=== PATIENT | female | born 1940 | race Caucasian/White ===

== ENCOUNTER 2017-08-13 22:09 | Inpatient (IN) | payer MEDICARE ==
[~2017-08-13] VITALS: Ht 157.5 cm; Wt 62.4 kg
[2017-08-13 22:10] VITALS: RESP 15; O2SAT 96
[2017-08-13] MEDS ORDERED: ASPI81CH6 CHEW (22:16)
[2017-08-13] MEDS ORDERED: LISI-515 PO (22:16)
[2017-08-13 22:17] VITALS: BP 146/84; PULSE 83; RESP 18; TEMP 98.1; O2SAT 95
[2017-08-13] MEDS ORDERED: METF1000 PO (22:17)
[2017-08-13] MEDS ORDERED: LISI20TA PO (22:17)
[2017-08-13] MEDS ORDERED: AMLO2.5T PO (22:17)
--- NOTE | 2017-08-13 22:44 | PD ---
HPI Chief Complaint: Fall Time Seen by Provider: 22:21 Travel History International Travel<30 days: No Contact w/Intl Traveler<30days: No Traveled to known affect area: No History of Present Illness HPI 77-year-old female that presents to the ED for evaluation of fall. Patient was transferred here from [facility] for evaluation of a traumatic injury. Patient had a mechanical fall when she tripped over a sidewalk. Patient landed into her face. Patient was evaluated at [facility] and had imaging and lab work that was consistent with a right patellar fracture, left temporal subdural hematoma as well as subarachnoid hemorrhage as well as a blowout left orbital fracture with no entrapment. Patient also suffered a laceration to her left forehead. This was sutured at the [facility]. Patient was transferred here after Dr. Petty from our trauma service agreed to have the transferred here. Patient complains that her pain currently is tolerable a 4 out of 10. She was given pain medication and tetanus booster at another facility. She denies any prior injuries. She denies taking any blood thinners. She denies losing consciousness. She denies any chest pain. No abdominal pain. No head pain. Patient has a splint to her right knee. She denies any back or neck pain at this time. She denies any other medical issues at this time. She does have a history of high blood pressure and diabetes. PENDING SALE TO [facility] Past Medical History Cardiovascular Problems: Yes (htn) Diabetes: Yes (metformin) Social History Alcohol Use: No Tobacco Use: No Substance Use: No Allergies-Medications (Allergen,Severity, Reaction): Coded Allergies: No Known Allergies (Verified Allergy, Unknown, 08/13/17) Reported Meds & Prescriptions Reported Meds & Active Scripts Active Reported Amlodipine (Amlodipine Besylate) 2.5 Mg Tab 2.5 Mg PO DAILY Metformin (Metformin HCl) 1,000 Mg Tab 1,000 Mg PO BIDPC Lisinopril-Hctz 20-12.5 Mg Tab 1 Tab PO DAILY Aspirin Low Dose (Aspirin) 81 Mg Chew 81 Mg CHEW DAILY Review of Systems Except as stated in HPI: all other systems reviewed are Neg Physical Exam Narrative GENERAL: SKIN: Warm and dry. HEAD: Atraumatic. Normocephalic. Bruising and swelling to the left orbit and forehead. Has a small 3 cm laceration just above the left eyebrow. EYES: Pupils equal and round 4 mms reactive to light and accommodation. No scleral icterus. No injection or drainage. EOM intact bilaterally. No entrapment noted. ENT: No nasal bleeding or discharge. Mucous membranes pink and moist. Tongue is midline. No uvula deviation. NECK: Trachea midline. No JVD. CARDIOVASCULAR: Regular rate and rhythm. No murmurs, S3, S4. RESPIRATORY: No accessory muscle use. Clear to auscultation. Breath sounds equal bilaterally. GASTROINTESTINAL: Abdomen soft, non-tender, nondistended. Hepatic and splenic margins not palpable. MUSCULOSKELETAL: Extremities without clubbing, cyanosis, or edema. No obvious deformities. Patient has a splint not on the right knee. Patient does have a significant hematoma to the left orbit with tenderness to palpation around the zygomatic bone as well as the orbital bones. No obvious cervical, thoracic, lumbar spine tenderness to palpation. 2+ pulses bilaterally. Patient has full range of motion of the upper extremities with no pain. 2+ pulses bilaterally. No deformities noted. Patient has full range of motion of the left lower extremity with no pain or deformity. NEUROLOGICAL: Awake and alert. No obvious cranial nerve deficits. Motor grossly within normal limits. Five out of 5 muscle strength in the arms and legs. Normal speech. PSYCHIATRIC: Appropriate mood and affect; insight and judgment normal. Data Data Last Documented VS Vital Signs Date Time Temp Pulse Resp B/P (MAP) Pulse Ox O2 Delivery O2 Flow Rate FiO2 08/13/17 22:17 98.1 83 18 146/84 (104) 95 Orders Orders Admit Order (Ed Use Only) (08/13/17 22:25) Electrocardiogram (08/13/17 22:28) Iv Access Insert/Monitor (08/13/17 22:28) Ecg Monitoring (08/13/17 22:28) Oximetry (08/13/17 22:28) Type And Screen (08/13/17 22:28) [facility] Medical Decision Making Medical Screen Exam Complete: Yes Emergency Medical Condition: Yes Medical Record Reviewed: Yes Interpretation(s) Labs and CTs done at [facility]. CT of the head showed small subdural hemorrhage or acute in time frame over the left frontal and temporal lobes. No mass effect. Minimal subarachnoid hemorrhage. No midline shift. Small vessel disease is chronic. Hemorrhage in the left maxillary antrum. No skull fracture. CT of the cervical spine without contrast showed negative for acute fracture. Degenerative changes. CT of the maxillofacial without contrast shows subtotal acute nondisplaced blowout fracture at the left orbital floor with herniation of the retrobulbar contents through the fracture defect. Trace blood fluid layers within the left maxillary sinus antrum. No associated left orbital acute traumatic injury. Left periorbital facial scalp subcutaneous blunt and penetrating injuries as above. X-ray of the right knee showed there is an acute closed distracted comminuted middle diaphyseal third fracture of the patella with distraction of 6 mm. Large lipoma hemarthrosis and markedly prepatellar soft tissue thickening and swelling. CBC show a viable 6 out of 14.5, RBC of 4.33, hemoglobin of 12.9, hematocrit of 38.8, platelets of 204, MCV of 89.6, neutrophils 83.2%, lymphs at 10.5% PT of 12.7, INR of 1.0, PTT of 26.4 Sodium 141, potassium of 4.1, chloride of 101, CO2 of 27, anion gap of 13, glucose of 186, BUN of 33, creatinine of 1.09, calcium of 8.8, creatinine clearance of 36.2, GFR of 49.8, albumin of 4.3, total protein of 5.7, alkaline phosphatase of 44, AST of 49, ALT of 62, bili total of 0.3. Differential Diagnosis Trauma versus subdural hematoma versus patellar fracture versus SIH versus fall Narrative Course 77-year-old female that presents to the ED for evaluation of trauma. Patient was properly examined and was found to have signs and symptoms consistent with trauma. Patient does have significant injuries. Case was discussed with my attending who agrees with plan. Case was discussed with trauma surgeon Dr. Lamar who will admit the patient. I specifically ask him if he wants me to consult neurosurgery, orthopedics, maxillofacial and he declined stating that he will put consult orders himself. This was discussed with the patient who agrees with plan. Patient was admitted to the trauma service. Diagnosis Primary Impression: Subdural hematoma, acute Additional Impressions: SAH (subarachnoid hemorrhage) Blow out fracture of orbit Qualified Codes: S02.30XA - Fracture of orbital floor, unspecified side, initial encounter for closed fracture Patellar fracture Qualified Codes: S82.041A - Displaced comminuted fracture of right patella, initial encounter for closed fracture Admitting Information Admitting Physician Requests: Admit Jose Alfredo Dobson Aug 13, 2017 22:44
[2017-08-13 23:00] VITALS: BP 136/70; PULSE 72; RESP 14; O2SAT 93
[2017-08-13] MEDS ORDERED: ONDANSETRON HCL 4 MG/2 ML VIAL IV PUSH PRN (23:30)
[2017-08-13] MEDS ORDERED: Post-op Orders (for Pharmacy) XX ONE (23:30)
[2017-08-13] MEDS ORDERED: NALOXONE HCL 0.4 MG/ML AMP IV PUSH PRN (23:30)
[2017-08-13] MEDS ORDERED: SODIUM CHLORIDE 0.9% FLUSH 10 ML FLUSH IV FLUSH PRN (23:30)
[2017-08-13] MEDS ORDERED: MORPHINE SULFATE 2 MG/ML INJ IV PRN (23:45)
[2017-08-14] VITALS (8 sets, daily range): BP systolic 113–133; BP diastolic 56–71; PULSE 60–78; RESP 12–24; TEMP 98.5–99.1; O2SAT 95–96
[2017-08-14] MEDS ORDERED: SODIUM CHLOR 0.9% 1000 ML INJ 1,000 ML IV SCH
[2017-08-14] MEDS ORDERED: PILL SPLITTER OTHER PRN (00:15)
--- NOTE | 2017-08-14 04:29 | RADRPT ---
EXAM DATE/TIME: 08/14/2017 03:48 [facility] COMPARISON: No previous studies available for comparison. INDICATIONS : Short of breath. MEDICAL HISTORY : Hypertension. Diabetes mellitus type II. SURGICAL HISTORY : None. ENCOUNTER: Initial ACUITY: 1 day PAIN SCORE: 0/10 LOCATION: Bilateral chest FINDINGS: A single view of the chest demonstrates the lungs to be symmetrically aerated without evidence of mas s, infiltrate or effusion. The cardiomediastinal contours are unremarkable. Osseous structures are intact. CONCLUSION: The lungs are clear. Salinas Johnson MD on August 14, 2017 at 4:28 Board Certified Radiologist. This report was verified electronically.
[2017-08-14 05:18] LABS: AUTOMATED NEUTROPHIL # 9.7 TH/MM3 (1.8-7.7); BASOPHIL % 0.3 % (0.0-2.0); EOSINOPHIL % 0.2 % (0.0-4.0); HEMO FLAGS DIFF FINAL; LYMPH % 10.1 % (9.0-44.0); LYMPHOCYTE # 1.2 TH/MM3 (1.0-4.8); MEAN CELL VOLUME 89.4 FL (80.0-100.0); MEAN CORPUSCULAR HEMOGLOBIN 29.7 PG (27.0-34.0); MEAN CORPUSCULAR HGB CONC 33.2 % (32.0-36.0); MONO % 5.8 % (0.0-8.0); NEUT % 83.6 % (16.0-70.0); PLATELET COUNT 161 TH/MM3 (150-450); RED BLOOD COUNT 4.14 MIL/MM3 (4.00-5.30); RED CELL DISTRIBUTION WIDTH 14.1 % (11.6-17.2); WHITE BLOOD COUNT 11.6 TH/MM3 (4.0-11.0)
[2017-08-14 05:39] LABS: BICARBONATE 27.1 MEQ/L (21.0-32.0); POTASSIUM 3.9 MEQ/L (3.5-5.1)
--- NOTE | 2017-08-14 07:11 | PD.ORT.PN ---
Subjective Subjective Remarks s/p fall over sidewalk reports right knee pain and face pain taken to [facility] and [place] [facility] [place] Objective Vitals Vital Signs Date Time Temp Pulse Resp B/P (MAP) Pulse Ox O2 Delivery O2 Flow Rate FiO2 08/14/17 07:04 78 16 123/65 (84) 96 Room Air 08/14/17 05:00 70 14 129/71 (90) 96 Room Air 08/14/17 03:00 62 14 113/65 (81) 95 Room Air 08/14/17 01:00 74 14 126/70 (88) 95 Room Air 08/13/17 23:00 72 14 136/70 (92) 93 Room Air 08/13/17 22:17 98.1 83 18 146/84 (104) 95 08/13/17 22:10 15 96 Room Air Result Diagram: 08/14/17 0427 08/14/17 0427 Objective Remarks RLE: abrasion over anterior knee at patella. swelling of knee noted. +CKS. NVI Assessment & Plan Assessment and Plan 1) Right Patella Fx -fx is relatively well aligned. borderline for needing surgical intervention -will order new xrays today to re-eval -if maintains position compared to xrays at [facility], may not need surgery -if displaces, will need ORIF -maintain knee brace -new xrays reviewed from today. fracture has maintained and is well aligned. -will plan for nonop treatment -50%WB with knee brace on. no quad sets, leg lifts, ROM, strengthening. -will need to re-xray in 10 days to check alignment Thuan Arrington/[employer] PA Aug 14, 2017 07:11
[2017-08-14] MEDS ORDERED: DEXTROSE 50% IN WATER 50 ML VIAL(D50) IV PUSH PRN (07:30)
[2017-08-14] MEDS ORDERED: LACTULOSE SYRUP 20 GM/30 ML CUP PO PRN (07:30)
[2017-08-14] MEDS ORDERED: GLUCAGON 1 MG/ML VIAL OTHER PRN (07:30)
[2017-08-14] MEDS: oxyCODONE/ACETAMINOPHEN 5 MG/325 MG TAB PO PRN ×3 (07:32→22:51)
[2017-08-14] MEDS: INSULIN NovoLIN REGULAR SUPPLEMENTAL SCALE SQ SCH ×4 (08:00→20:47)
--- NOTE | 2017-08-14 08:27 | RADRPT ---
EXAM DATE/TIME: 08/14/2017 08:07 [facility] COMPARISON: No previous studies available for comparison. INDICATIONS : Right knee pain after falling yesterday. MEDICAL HISTORY : Hypertension. Diabetes mellitus type II. SURGICAL HISTORY : None. ENCOUNTER: Initial ACUITY: 2 days PAIN SCORE: 6/10 LOCATION: Right patella. FINDINGS: Two view examination of the right knee demonstrates a comminuted fracture through the patella with ex tension to the articulating a non-articulating surface. Approximately 4 mm of distraction of the main fracture fragments. Prepatellar swelling and a large suprapatellar effusion are present. Distal femu r, proximal tibia and proximal fibula all appear to be intact. CONCLUSION: 1. Comminuted fracture of the patella with extension to the articulating and non-articulating surface s. Approximately 4 mm of distraction of the main fracture fragments. 2. Prepatellar soft tissue swelling with a large suprapatellar effusion. Atul Brown MD on August 14, 2017 at 8:22 Board Certified Radiologist. This report was verified electronically.
[2017-08-14] MEDS ORDERED: DOCUSATE SODIUM 100 MG CAP PO SCH (09:00)
[2017-08-14] MEDS: SODIUM CHLORIDE 0.9% FLUSH 10 ML FLUSH IV FLUSH SCH ×2 (09:00→20:47)
[2017-08-14] MEDS: POLYETHYLENE GLYCOL 17 GM PKG PO SCH (09:00)
--- NOTE | 2017-08-14 09:49 | PD.CONS ---
[facility] Service neurosurgery Consult Requested By rosette thompson Reason for Consult traumatic brain injury Primary Care Physician Non-Staff History of Present Illness this is a 77-year-old female with history of high blood pressure and diabetes. mellitus, brought to [facility] for evaluation of fall. She was transferred here from [facility] for evaluation of a traumatic injury. She does have a history of high blood pressure and diabetes. Apparently she tripped over a sidewalk. Patient landed into her face. lNo oss of consciousness. No seizure activity reported. No tongue biting. No incontinence of stool or urine Patient was evaluated at [facility] and had imaging and lab work that was consistent with a right patellar fracture, left temporal subdural hematoma as well as subarachnoid hemorrhage as well as a blowout left orbital fracture with no entrapment. Patient also suffered a laceration to her left forehead. This was sutured at the [facility]. The neurosurgeon at [facility] refused to see her. She was transferred here after Dr. Petty from our trauma service agreed to have the transferred here. Patient complains that her pain currently is tolerable a 4 out of 10. She was given pain medication and tetanus booster at another facility. She denies any prior injuries. She denies taking any blood thinners. She denies losing consciousness. She denies any chest pain. No abdominal pain. No head pain. Patient has a splint to her right knee. She denies any back or neck pain at this time. She denies any other medical issues at this time. Neurosurgical consultation was requested Review of Systems Constitutional: DENIES: Diaphoretic episodes, Fatigue, Fever, Weight gain, Weight loss, Chills, Dizziness, Change in appetite, Night Sweats Endocrine: DENIES: Abnorml menstrual pattern, Heat/cold intolerance, Polydipsia , Polyuria, Polyphagia Eyes: DENIES: Blurred vision, Diplopia, Eye inflammation, Eye pain, Vision loss , Photosensitivity, Double Vision Ears, nose, mouth, throat: DENIES: Tinnitus, Hearing loss, Vertigo, Nasal discharge, Oral lesions, Throat pain, Hoarseness, Ear Pain, Running Nose, Epistaxis, Sinus Pain, Toothache, Odynophagia Respiratory: DENIES: Apneas, Cough, Snoring, Wheezing, Hemoptysis, Sputum production, Shortness of breath Cardiovascular: DENIES: Chest pain, Palpitations, Syncope, Dyspnea on Exertion , PND, Lower Extremity Edema, Orthopnea, Claudication Gastrointestinal: DENIES: Abdominal pain, Black stools, Bloody stools, Constipation, Diarrhea, Nausea, Vomiting, Difficulty Swallowing, Anorexia Genitourinary: DENIES: Abnormal vaginal bleeding, Dysmenorrhea, Dyspareunia, Sexual dysfunction, Urinary frequency, Urinary incontinence, Urgency, Hematuria , Dysuria, Nocturia, Vaginal discharge Musculoskeletal: COMPLAINS OF: Joint pain Integumentary: DENIES: Abnormal pigmentation, Pruritus, Rash, Nail changes, Breast masses, Breast skin changes, Nipple discharge Hematologic/lymphatic: COMPLAINS OF: Bruising, DENIES: Lymphadenopathy Immunologic/allergic: DENIES: Eczema, Urticaria Neurologic: COMPLAINS OF: Headache, DENIES: Abnormal gait, Localized weakness, Paresthesias, Seizures, Speech Problems, Tremor, Poor Balance Psychiatric: COMPLAINS OF: Mood changes Past Family Social History Allergies: Coded Allergies: No Known Allergies (Verified Allergy, Unknown, 08/13/17) Past Medical History 1. Hypertension 2. Diabetes mellitus Past Surgical History Lumbar laminectomy Active Ordered Medications Current Medications Sodium Chloride 1,000 ml @ 60 mls/hr [id number] IV Last administered on 00:49; Start 08/14/17 at 00:00; Stop 08/14/17 at 10:13; Status DC Sodium Chloride (NS Flush) 2 ml UNSCH PRN IV FLUSH FLUSH AFTER USING IV ACCESS ; Start 08/13/17 at 23:30 Sodium Chloride (NS Flush) 2 ml BID IV FLUSH ; Start 08/14/17 at 09:00 Ondansetron HCl (Zofran Inj) 4 mg Q6H PRN IV PUSH NAUSEA OR VOMITING; Start at 23:30 Famotidine (Pepcid) 20 mg BID PO Last administered on 08/14/17 10:55; Start 08/14/17 at 09:00 Docusate Sodium (Colace) 100 mg BID PO ; Start 08/14/17 at 09:00; Stop at 09:00; Status DC Miscellaneous Information (Post-op Orders (for Pharmacy)) STAT ONCE XX ; Start 08/13/17 at 23:30; Stop 08/13/17 at 23:46; Status DC Oxycodone/ Acetaminophen (Percocet 5-325 Mg) 1 tab Q6H PRN PO PAIN SCALE 3 TO 5 Last administered on 08/14/17 13:05; Start 08/13/17 at 23:30 Morphine Sulfate (Morphine Inj) 2 mg Q3H PRN IV PAIN 6-10 Last administered on 08/14/17 02:46; Start 08/13/17 at 23:45 Naloxone HCl (Narcan Inj) 0.4 mg UNSCH PRN IV PUSH SEE LABEL COMMENTS; Start 08/13/17 at 23:30 Amlodipine Besylate (Norvasc) 2.5 mg DAILY PO Last administered on 08/14/17 10:55; Start 08/14/17 at 09:00 Lisinopril (Prinivil) 20 mg DAILY PO Last administered on 08/14/17 10:55; Start 08/14/17 at 09:00 Hydrochlorothiazide (Microzide) 12.5 mg DAILY PO Last administered on 10:54; Start 08/14/17 at 09:00 Miscellaneous (Pill Splitter) 1 ea UNSCH PRN OTHER SEE LABEL COMMENTS; Start 08/14/17 at 00:15 Dextrose (D50w (Vial) Inj) 50 ml UNSCH PRN IV PUSH HYPOGLYCEMIA-SEE COMMENTS; Start 08/14/17 at 07:30 Glucagon (Glucagon Inj) 1 mg UNSCH PRN OTHER HYPOGLYCEMIA-SEE COMMENTS; Start 08/14/17 at 07:30 Insulin Human Regular (NovoLIN R SUPPLEMENTAL SCALE) 1 ACHS SLIDING SCALE SQ Last administered on 08/14/17 12:56; Start 08/14/17 at 08:00 Senna/Docusate Sodium (Mae-Colace) 1 tab BID PO Last administered on 10:54; Start 08/14/17 at 09:00 Lactulose (Lactulose Liq) 30 ml DAILY PRN PO No BM in 2 days; Start 08/14/17 at 07:30 Polyethylene Glycol (Miralax) 17 gm DAILY PO ; Start 08/14/17 at 09:00 Levetriacetam (Keppra) 500 mg Q12H PO Last administered on 08/14/17t 10:55; Start 08/14/17 at 11:00 Family History Her family history was reviewed and noncontributory to this admission Social History No tobacco, no alcohol, no illicit drug use Physical Exam Vital Signs Vital Signs Date Time Temp Pulse Resp B/P (MAP) Pulse Ox O2 Delivery O2 Flow Rate FiO2 08/14/17 09:23 08/14/17 07:04 78 16 123/65 (84) 96 Room Air 08/14/17 05:00 70 14 129/71 (90) 96 Room Air 08/14/17 03:00 62 14 113/65 (81) 95 Room Air 08/14/17 01:00 74 14 126/70 (88) 95 Room Air 08/13/17 23:00 72 14 136/70 (92) 93 Room Air 08/13/17 22:17 98.1 83 18 146/84 (104) 95 08/13/17 22:10 15 96 Room Air Physical Exam The patient is alert, awake and oriented to time, place and person. Speech is fluent. Higher cognitive functions are normal. Cranial nerve examination demonstrates the pupils to be equal, round, and reactive to light. Extra-ocular movements are intact. Facial motor and sensory function are normal and symmetrical. Gross hearing is decreased bilaterally. The uvula is midline and elevates symmetrically with the soft palate. Sternocleidomastoid and trapezius muscles have normal and symmetrical strength. Other cranial nerves are intact. Neck is soft and supple. Cervical spine has a decreased range of motion in anterior flexion, extension, lateral bending, and rotation without pain. There is no tenderness to palpation to the spinous processes or paraspinal muscles. Muscle testing reveals normal bulk and tone overall without rigidity, spasticity , fasciculations, or atrophy. Muscle strength is 5/5 in all muscle groups of both upper extremities including deltoid, biceps, triceps, brachioradialis, wrist extension and edge burnisher uppers. In the lower extremities, strength is 5/5 in both iliopsoas, quadriceps, hamstrings, plantar flexion, dorsiflexion, and extensor hallicus longus. Sensory examination is intact to light touch and sharp/dull discrimination in both the upper and lower extremities, symmetrically. Deep tendon reflexes are 2+ and symmetrical in the biceps, triceps, and brachioradialis, bilaterally, in the upper extremities. In the lower extremities , the patellar and Achilles are 2+, bilaterally. There is a bilateral plantar flexion response. Hoffmanns sign is negative. There is no clonus or other abnormal reflexes noted. Cerebellar examination is intact to [id number] test, rapid rhythmic alternating motion. There is no dysmetria, dysdiadochokinesia, truncal ataxia, or tremor. Laboratory Laboratory Tests Test 08/14/17 04:27 White Blood Count 11.6 Red Blood Count 4.14 Hemoglobin 12.3 Hematocrit 37.0 Mean Corpuscular Volume 89.4 Mean Corpuscular Hemoglobin 29.7 Mean Corpuscular Hemoglobin Concent 33.2 Red Cell Distribution Width 14.1 Platelet Count 161 Mean Platelet Volume 9.9 Neutrophils (%) (Auto) 83.6 Lymphocytes (%) (Auto) 10.1 Monocytes (%) (Auto) 5.8 Eosinophils (%) (Auto) 0.2 Basophils (%) (Auto) 0.3 Neutrophils # (Auto) 9.7 Lymphocytes # (Auto) 1.2 Monocytes # (Auto) 0.7 Eosinophils # (Auto) 0.0 Basophils # (Auto) 0.0 CBC Comment DIFF FINAL Differential Comment Blood Urea Nitrogen 31 Creatinine 1.05 Random Glucose 174 Calcium Level 8.8 Sodium Level 140 Potassium Level 3.9 Chloride Level 105 Carbon Dioxide Level 27.1 Anion Gap 8 Estimat Glomerular Filtration Rate 51 Result Diagram: 08/14/17 0427 08/14/17 0427 Imaging Last [address] 08/14/17 1200 Signed Impressions: Service Date/Time: August 07:58 - CONCLUSION: No acute disease. Possible tiny vascular malformation along the vertex the right frontal lobe. Further evaluation with MRI should be considered if the patient has significant neurologic findings. Minimal fluid accumulation in the left maxillary sinus. Mega Finch MD Knee X-Ray 08/14/17 0000 Signed Impressions: Service Date/Time: August 08:07 - CONCLUSION: 1. Comminuted fracture of the patella with extension to the articulating and non-articulating surfaces. Approximately 4 mm of distraction of the main fracture fragments. 2. Prepatellar soft tissue swelling with a large suprapatellar effusion. Atul Brown MD Chest X-Ray 08/13/17 0000 Signed Impressions: Service Date/Time: August 03:48 - CONCLUSION: The lungs are clear. Salinas Johnson MD Assessment and Plan Assessment and Plan Caprini VTE Risk Assessment Caprini VTE Risk Assessment: No/Low Risk (score <= 1) Caprini Risk Assessment Model Point Value = 1 Point Value = 2 Point Value = 3 Point Value = 5 Age 41-60 Minor surgery BMI > 25 kg/m2 Swollen legs Varicose veins or History of unexplained or recurrent spontaneous Oral contraceptives or hormone replacement Sepsis (< 1 month) Serious lung disease, including pneumonia (< 1 month) Abnormal pulmonary function Acute myocardial infarction Congestive heart failure (< 1 month) History of inflammatory bowel disease Medical patient at bed rest Age 61-74 Arthroscopic surgery Major open surgery (> 45 min) Laparoscopic surgery (> 45 min) Malignancy Confined to bed (> 72 hours) Immobilizing plaster cast Central venous access Age >= 75 History of VTE Family history of VTE Factor V Leiden Prothrombin [id number] Lupus anticoagulant Anticardiolipin antibodies Elevated serum homocysteine Heparin-induced thrombocytopenia Other congenital or acquired thrombophilia Stroke (< 1 month) Elective arthroplasty Hip, pelvis, or leg fracture Acute spinal cord injury (< 1 month) Prophylaxis Regimen Total Risk Factor Score Risk Level Prophylaxis Regimen 0-1 Low Early ambulation 2 Moderate Order ONE of the following: *Sequential Compression Device (SCD) *Heparin 5000 units SQ BID 3-4 Higher Order ONE of the following medications: *Heparin 5000 units SQ TID *Enoxaparin/Lovenox 40 mg SQ daily (WT < 150 kg, CrCl > 30 mL/min) *Enoxaparin/Lovenox 30 mg SQ daily (WT < 150 kg, CrCl > 10-29 mL/min) *Enoxaparin/Lovenox 30 mg SQ BID (WT < 150 kg, CrCl > 30 mL/min) AND/OR *Sequential Compression Device (SCD) 5 or more Highest Order ONE of the following medications: *Heparin 5000 units SQ TID (Preferred with Epidurals) *Enoxaparin/Lovenox 40 mg SQ daily (WT < 150 kg, CrCl > 30 mL/min) *Enoxaparin/Lovenox 30 mg SQ daily (WT < 150 kg, CrCl > 10-29 mL/min) *Enoxaparin/Lovenox 30 mg SQ BID (WT < 150 kg, CrCl > 30 mL/min) AND *Sequential Compression Device (SCD) Attending Statement Traumatic brain injury - No surgical intervention indicated - Neuro checks in standard fashion - Keppra prophylaxis - Repeat CT in 24 hours Right Patella Fx.. borderline for needing surgical interventio Pulmonary. aggressive pulmonary toilette, nasotracheal suction, and breathing treatments with nebulizers. Daily PT and OT Nutrition. Tolerating Oral diet Renal. monitor closely urine output, BUN and creatinine Endocrine. Monitor serial Acu checks and SSI as needed in detail ID monitor for signs of infection Protonix for stress ulcer prophylaxis Tristan hose and SCD's for DVT prophylaxis Further recommendations will be provided depending on the patient's clinical evaluation and follow up studies. Chaitanya Rossi MD Aug 14, 2017 09:49
--- NOTE | 2017-08-14 09:53 | RADRPT ---
EXAM DATE/TIME: 08/14/2017 07:58 [facility] COMPARISON: No previous studies available for comparison. INDICATIONS : Subdural hematoma. RADIATION DOSE: 31.80 CTDIvol (mGy) MEDICAL HISTORY : Hypertension. Diabetes mellitus type 2. SURGICAL HISTORY : None. ENCOUNTER: Initial ACUITY: 1 day PAIN SCALE: 4/10 LOCATION: Left frontal TECHNIQUE: Multiple contiguous axial images were obtained of the head. Using automated exposure control and adj ustment of the mA and/or kV according to patient size, radiation dose was kept as low as reasonably a chievable to obtain optimal diagnostic quality images. DICOM format image data is available electro nically for review and comparison. FINDINGS: CEREBRUM: The ventricles are normal for age. No evidence of midline shift, mass lesion, hemorrhage or acute in farction. No extra-axial fluid collections are seen. Small linear hyperdensity is seen along the leelee pato of the right frontal lobe. There is no associated mass effect or edema. This may represent a smal l vascular malformation such as a venous angioma. POSTERIOR FOSSA: The cerebellum and brainstem are intact. The 4th ventricle is midline. The cerebellopontine angle i s unremarkable. EXTRACRANIAL: The visualized portion of the orbits is intact. SKULL: The calvaria is intact. No evidence of skull fracture. CONCLUSION: No acute disease. Possible tiny vascular malformation along the vertex the right frontal lobe. Further evaluation with MRI should be considered if the patient has significant neurologic findings. Minimal fluid accumulation in the left maxillary sinus. Mega Finch MD on August 14, 2017 at 9:46 Board Certified Radiologist. This report was verified electronically.
--- NOTE | 2017-08-14 10:12 | HHI.CCPN ---
Subjective Brief History 77-year-old female brought to [facility] for evaluation of fall. She was transferred here from [facility] for evaluation of a traumatic injury. Apparently she tripped over a sidewalk. Patient landed into her face. Patient was evaluated at [facility] and had imaging and lab work that was consistent with a right patellar fracture, left temporal subdural hematoma as well as subarachnoid hemorrhage as well as a blowout left orbital fracture with no entrapment. Patient also suffered a laceration to her left forehead. This was sutured at the [facility]. The neurosurgeon at [facility] refused to see her. She was transferred here after I accepted her to our trauma. Prior lumbar laminectomy. She denies taking any blood thinners. She denies losing consciousness. She denies any chest pain. No abdominal pain. No head pain. Patient has a splint to her right knee. She denies any back or neck pain at this time. She denies any other medical issues at this time. She does have a history of high blood pressure and diabetes. Final diagnosis Subarachnoid subdural hemorrhage with no neurologic deficit Left orbital blowout fracture Patellar fracture 24 Hour Review/Hospital Course Patient has been doing well since the arrival Neurologically she is fully intact awake alert and oriented Swelling around the left orbit has decreased Bilateral breath sounds Abdomen soft active bowel sounds Bilateral femoral-popliteal dissolves pedis posterior tibial pulses Patellar fracture with the swelling Neurosurgery F Orthopedic consults placed Repeat CT scan does not reveal any worsening of situation in the face of negative neurologic findings patient to be transferred to floor today Objective Vital Signs Date Time Temp Pulse Resp B/P (MAP) Pulse Ox O2 Delivery O2 Flow Rate FiO2 08/14/17 09:23 08/14/17 07:04 78 16 96 Room Air 08/13/17 22:17 98.1 Result Diagram: 08/14/17 0427 08/14/17 0427 Imaging Last 24 hours Impressions Knee X-Ray 08/14/17 0000 Signed Impressions: Service Date/Time: August 08:07 - CONCLUSION: 1. Comminuted fracture of the patella with extension to the articulating and non-articulating surfaces. Approximately 4 mm of distraction of the main fracture fragments. 2. Prepatellar soft tissue swelling with a large suprapatellar effusion. Atul Brown MD Exam SAWMILL TALLY CLERK Neurologically she is fully intact awake alert and oriented Swelling around the left orbit has decreased Repeat CT scan does not reveal any worsening of situation in the face of negative neurologic findings patient to be transferred to floor today Hemodynamic/Cardiac Hemodynamically patient is fully intact Pulmonary/Respiratory Bilateral breath sounds Abdomen soft active bowel sounds Bilateral femoral-popliteal dissolves pedis posterior tibial pulses Patellar fracture with the swelling Neurosurgery OMF Orthopedic consults placed Assessment and Plan Attestation Orthopedic, OMF and neurosurgery consults a greatly appreciated Critical care time 38 minutes Rachna Briseno MD Aug 14, 2017 10:12
[2017-08-14] MEDS: DOCUSATE SODIUM 50 MG/SENNA 8.6 MG TAB PO SCH ×3 (10:54→23:00)
[2017-08-14] MEDS: HYDROCHLOROTHIAZIDE 12.5 MG CAP PO SCH (10:54)
[2017-08-14] MEDS: FAMOTIDINE 20 MG TAB PO SCH ×2 (10:55→20:47)
[2017-08-14] MEDS: amLODIPine BESYLATE 5 MG TAB PO SCH (10:55)
[2017-08-14] MEDS: levETIRAcetam 500 MG TAB PO SCH ×2 (10:55→23:38)
[2017-08-14] MEDS: LISINOPRIL 20 MG TAB PO SCH (10:55)
--- NOTE | 2017-08-14 11:00 | MH ---
cc: RACHNA HANNAH DATE OF ADMISSION 08/13/2017 ADMITTING PHYSICIAN Rachna Hannah MD, Trauma Surgeon DIAGNOSIS 1. Subarachnoid hemorrhage, subdural hemorrhage status post fall from the standing position. 2. Fracture of the patella on the right. 3. Orbital fracture HISTORY OF PRESENT DISEASE This 77-year-old lady apparently fell while walking with her , was transferred to [facility] where she was evaluated. I was called to accept the patient in transfer as a trauma. At that time I was called, the patient had a subarachnoid and subdural hemorrhage, an orbital fracture and patellar fracture. The patient was seen only by ER physician and the neurosurgeon cotton washer refused to even see the patient. The patient was immediately transferred and she arrives to our emergency room awake, alert and oriented. PAST MEDICAL HISTORY 1. Hypertension 2. Diabetes mellitus PAST SURGICAL HISTORY Lumbar laminectomy MEDICATIONS The medications can be found in the records. SOCIAL HISTORY Noncontributory PHYSICAL EXAM This is a pleasant 77-year-old lady in no acute distress. HEAD, EYES, EARS, NOSE, AND THROAT: Normocephalic. No trauma to the calvaria. Facial trauma noted with lacerations of the left forehead and swelling around the left orbit. Pupils are equally reactive. Extraocular muscles are intact. The patient does not have entrapment. No hemotympanum. No Gonzalez sign, no raccoon's eyes, however, swelling around the left eye from a direct blow note from a basal skull fracture. NECK: Bilateral carotid pulses, faint left-sided bruit. No signs of trauma to the neck. CHEST: Bilateral breath sounds. HEART: Regular rhythm. ABDOMEN: Soft. Active bowel sounds. No rebound or guarding. No masses. EXTREMITIES: The patient has bilateral femoral, popliteal, dorsalis pedis and posterior tibial pulses. Bilateral brachial, ulnar and radial pulses on palpation. Swelling of the right knee noted consistent with a noted comminuted patellar fracture. NEUROLOGIC: The patient is grossly intact. Castalia coma scale is 15. Motorically, she is fully intact with limitations of movement of the right leg due to trauma. Sensory preserved. Deep tendon reflexes are normal. IMPRESSION Patient with a suspected subarachnoid and subdural hemorrhage, she will have a repeat CT scan today, patellar fracture and orbital fracture. PLAN The patient will be initially admitted to ICU. Pending results of the CT scan may be transferred to the floor. Appropriate other subspecialties notified. Rachna NERI /10:14 AM /10:34 AM
--- NOTE | 2017-08-14 19:00 | MB ---
cc: SISSY CHEUNG DMD (fax to Dr. Cheung's office) DATE OF CONSULTATION 08/14/17 REASON FOR CONSULTATION Orbital fracture left HISTORY OF PRESENT ILLNESS This is a 77-year-old female who said that she tripped and she fell. She was transferred here from [facility]. This happened yesterday. She denies any loss of consciousness. I have seen and examined this patient this afternoon. Her is at bedside. She is alert, awake and oriented x3 in no acute distress. She indicated that she tripped and she landed on her face. PAST MEDICAL HISTORY 1. Diabetes. 2. Hypertension. ALLERGIES Denied. MEDICATIONS Blood pressure and diabetic medications. SOCIAL HISTORY Denies any alcohol, tobacco or illicit drug use. PHYSICAL EXAMINATION VITAL SIGNS: Temperature 98.5, pulse is 63, respiration rate 20, blood pressure 132/58 with oxygen saturation of 96%. Pupils are equal, round, reactive to light and accommodation. Extraocular movements are intact. There is left periorbital edema and ecchymosis. The patient is able to see fine. Denies any visual deficits. Facial bones, nasal bones were all palpated. No crepitus that is noted. The patient does report and she has some left-sided V2 paresthesia. Intraorally bite is in occlusion. No tenderness to palpation of the maxilla and the mandible. Positive range of motion of the neck. IMAGING STUDIES CT scan of the facial bones reviewed from [facility] shows a nondisplaced left orbital floor fracture. No herniation of any content. Some air fluids in the left maxillary sinus. IMPRESSION AND PLAN This is a 77-year-old female who is status post trip and fall with a nondisplaced left orbital floor fracture. At this time, there is no surgical intervention needed from oral maxillofacial surgery standpoint. The patient can follow up with me in my office, Dr. Cheung, [facility], when discharged. Sissy Cheung DMD ARMATURE WINDER REPAIR HELPER/SA /5:35 PM /6:42 PM
--- NOTE | 2017-08-14 19:12 | RADRPT ---
EXAM DATE/TIME: 08/14/2017 18:30 [facility] COMPARISON: No previous studies available for comparison. INDICATIONS : Syncope. MEDICAL HISTORY : Hypertension. Headache. Diabetes. Joint pain. SURGICAL HISTORY : None. ENCOUNTER: Initial ACUITY: 1 day PAIN SCORE: 0/10 LOCATION: Bilateral neck PEAK SYSTOLIC VELOCITIES (cm/sec): ICA/CCA RATIO: Right: 1.3 Left: 1.1 ICA: Right: 95.0 Left: 103.2 CCA: Right: 74.2 Left: 90.5 ECA: Right: 98.4 Left: 87.1 VERTEBRAL: Right: 39.5 antegrade Left: 67.7 antegrade Elevated flow velocities and ICA/CCA ratios have been found to correlate with increased degrees of vessel stenosis, calculated as percentage of diameter relative to a normal segment of distal ICA/CCA FINDINGS: RIGHT CAROTID: No significant stenosis is visualized. The waveforms are within normal limits. LEFT CAROTID: No significant stenosis is visualized. The waveforms are within normal limits. VERTEBRAL ARTERIES: Antegrade flow is seen in both vertebral arteries. MISCELLANEOUS: None. CONCLUSION: 1. Minimal plaque in the carotid arteries bilaterally. No hemodynamically significant stenosis. Skip Eason MD on August 14, 2017 at 19:10 Board Certified Radiologist. This report was verified electronically.
[2017-08-15] VITALS: BP 130/63; PULSE 58; RESP 12; TEMP 97.6; O2SAT 96
[2017-08-15 04:00] VITALS: BP 125/63; PULSE 58; RESP 21; TEMP 98.3; O2SAT 95
[2017-08-15 04:07] LABS: BASOPHIL % 0.4 % (0.0-2.0); EOSINOPHIL # 0.2 TH/MM3 (0-0.4); EOSINOPHIL % 2.5 % (0.0-4.0); HEMATOCRIT 36.8 % (35.0-46.0); HEMO FLAGS DIFF FINAL; LYMPH % 28.2 % (9.0-44.0); LYMPHOCYTE # 2.7 TH/MM3 (1.0-4.8); MEAN CELL VOLUME 89.1 FL (80.0-100.0); MEAN CORPUSCULAR HEMOGLOBIN 29.2 PG (27.0-34.0); MEAN CORPUSCULAR HGB CONC 32.7 % (32.0-36.0); MONO % 6.5 % (0.0-8.0); NEUT % 62.4 % (16.0-70.0); PLATELET COUNT 162 TH/MM3 (150-450); RED BLOOD COUNT 4.13 MIL/MM3 (4.00-5.30); RED CELL DISTRIBUTION WIDTH 14.2 % (11.6-17.2); WHITE BLOOD COUNT 9.6 TH/MM3 (4.0-11.0)
[2017-08-15 04:36] LABS: BICARBONATE 29.1 MEQ/L (21.0-32.0); POTASSIUM 3.5 MEQ/L (3.5-5.1)
--- NOTE | 2017-08-15 07:04 | MB ---
cc: ALIDA HINDS DATE OF CONSULTATION 08/14/2017 REASON FOR CONSULTATION A right patella fracture. CONSULTING PHYSICIAN Dr. Briseno HISTORY Aretha is a 77-year-old female who was walking. She lost her balance and fell. She hit her head. She had immediate right knee pain. She was initially taken to [facility]. The patient had a CT scan of her head was found to have a subdural hematoma and subarachnoid hemorrhage. She also had a left orbital fracture. She was found to have a right patella fracture. She is currently awake and alert in the emergency department. She complains of facial pain and right knee pain. Pain is worse with movement. PAST MEDICAL HISTORY ILLNESSES 1. Hypertension 2. Diabetes ALLERGIES None MEDICATIONS 1. Amlodipine 2. Metformin 3. Lisinopril 4. Aspirin SOCIAL HISTORY The patient denies alcohol, tobacco or drug use. FAMILY HISTORY Noncontributory REVIEW OF SYSTEMS The patient denies headache, visual changes, neck pain, chest pain, shortness of breath, abdominal pain, nausea, vomiting, recent weight loss or numbness or tingling of extremities. She complains of facial pain and right knee pain. Pain is worse with movement. PHYSICAL EXAMINATION The patient is a well-developed, well-nourished 77-year female. She is awake and alert. She appears well-developed, well-nourished. She is in no acute distress. VITAL SIGNS: Temperature 97.6, pulse 58, respirations 12, blood pressure 130/63, O2 sat 96% on room air. HEAD: The patient has significant swelling and bruising around her face and left orbit. NECK: Soft and nontender. Trachea is midline. ABDOMEN: Soft, nontender, nondistended. EXTREMITIES: Examination of the bilateral upper extremities reveals no pain with shoulder, elbow or wrist motion. She has intact sensation in all fingers. She has good cap refill fingers. Skin is intact both hands. Radial pulses are palpable. Examination of left leg reveals no pain with hip, knee or ankle motion. Skin is intact. Dorsalis pedis pulses palpable. Skin is intact. Examination of the right leg reveals no tenderness around her hip or ankle. She is tender to palpation over the patella. She has a superficial abrasion directly over the patella. She has pain with any knee motion. There is a small joint effusion noted. Calf and thigh compartments are soft. Dorsalis pedis pulses palpable. Sensation is intact in the right foot. X-RAYS X-rays of the right knee were reviewed. X-rays reveal a minimally displaced right patella fracture. Overall, the articular surface of the patella is well-aligned. IMPRESSION 1. Intracranial hemorrhage 2. Right patella fracture PLAN Treatment options were discussed with the patient. At this point, we will obtain repeat x-rays of her patella. If fracture stays well-aligned, I will plan on treating this nonoperatively. The patient understands if the fracture displaces, she will likely need surgical intervention. Because of the abrasion over her patella, surgery would need to be delayed until skin is healed if it does displace. The patient will need to remain in a knee immobilizer. She should not do any leg lifts. She may partial weight-bear with a walker and knee brace on. I will continue to follow her progress. A mid-level provider in my office, nurse practitioner or PA, may see this patient on a follow-up basis and continue to implement the objective of this plan including: Starting or adjusting medications, injections of muscle, tendon, bursa or joints, cast application, orthotic or brace application, physical therapy, further radiographic studies including x-ray, MRI, CT, ultrasounds or bone scan, vascular studies, neurologic studies, or other specialist consultations, and proceeding with surgical management as appropriate. MD REFUGIO Henderson/HUMBERTO /6:03 AM /6:40 AM
--- NOTE | 2017-08-15 07:16 | PD.ORT.PN ---
Subjective Subjective Remarks s/p right patella fx doing well. pain controlled no new complaints. Objective Vitals Vital Signs Date Time Temp Pulse Resp B/P (MAP) Pulse Ox O2 Delivery O2 Flow Rate FiO2 08/15/17 04:00 98.3 58 21 125/63 (83) 95 08/15/17 00:00 97.6 58 12 130/63 (85) 96 08/14/17 20:00 99.1 60 12 129/67 (87) 96 08/14/17 16:00 98.5 67 16 117/56 (76) 95 08/14/17 12:00 98.5 63 20 133/58 (83) 96 08/14/17 09:30 98.9 75 24 123/67 (85) 95 08/14/17 09:23 I/O 08/14/17 08/14/17 08/14/17 08/15/17 08/15/17 08/15/17 07:00 15:00 23:00 07:00 15:00 23:00 Intake Total 240 ml 720 ml 240 ml Output Total 400 ml 375 ml Balance 240 ml 320 ml -135 ml Intake Oral 720 ml 240 ml IV Total 240 ml Output Urine Total 400 ml 375 ml # Bowel Movements 0 Result Diagram: 08/15/17 0326 08/15/17 0326 Imaging Last [address] 08/14/17 1200 Signed Impressions: Service Date/Time: August 07:58 - CONCLUSION: No acute disease. Possible tiny vascular malformation along the vertex the right frontal lobe. Further evaluation with MRI should be considered if the patient has significant neurologic findings. Minimal fluid accumulation in the left maxillary sinus. Mega Finch MD Objective Remarks RLE: abrasion over anterior knee at patella. swelling of knee noted. +CKS. NVI Assessment & Plan Assessment and Plan 1) Right Patella Fx -fx is relatively well aligned. borderline for needing surgical intervention -plan for non op treatment -if maintains position, should do well -50% WB with brace on -no leg lifts, quad sets, ROM, strengthening -will re-xray in 10-14 days -f/u with [facility] in 10-14 days -ortho cleared for DC Thuan Arrington/Extractor Operator Helper KENNEDI Aug 15, 2017 07:16
[2017-08-15] MEDS ORDERED: WHEEMIS3 (07:18)
[2017-08-15] MEDS ORDERED: WALKER/ADULT/FO1 MIS (07:18)
[2017-08-15 08:00] VITALS: BP 139/62; PULSE 67; RESP 21; TEMP 98.8; O2SAT 94
[2017-08-15] MEDS: INSULIN NovoLIN REGULAR SUPPLEMENTAL SCALE SQ SCH ×2 (08:00→12:00)
[2017-08-15] MEDS: SODIUM CHLORIDE 0.9% FLUSH 10 ML FLUSH IV FLUSH SCH (08:16)
[2017-08-15] MEDS: POLYETHYLENE GLYCOL 17 GM PKG PO SCH (08:16)
[2017-08-15] MEDS: FAMOTIDINE 20 MG TAB PO SCH (08:17)
[2017-08-15] MEDS: HYDROCHLOROTHIAZIDE 12.5 MG CAP PO SCH (08:17)
[2017-08-15] MEDS: DOCUSATE SODIUM 50 MG/SENNA 8.6 MG TAB PO SCH (08:17)
[2017-08-15] MEDS: LISINOPRIL 20 MG TAB PO SCH (08:17)
[2017-08-15] MEDS: amLODIPine BESYLATE 5 MG TAB PO SCH (08:17)
[2017-08-15] MEDS: oxyCODONE/ACETAMINOPHEN 5 MG/325 MG TAB PO PRN (08:17)
--- NOTE | 2017-08-15 10:46 | HHI.FF ---
Face to Face Verification Diagnosis: (1) SAH (subarachnoid hemorrhage) (2) Blow out fracture of orbit (3) Subdural hematoma, acute (4) Patellar fracture Physical Therapy Order: Evaluate and Treat, Improve ambulation, Strength and gait training Home Health Nursing Order: Nursing assessment with vital signs I have seen patient Aretha Harvey on 08/15/17. My clinical findings support the need for the requested home health care services because: Limited ability to care for self High risk of falls I certify that my clinical findings support that this patient is homebound because: Unsteady gait/balance Aster Marinelli Aug 15, 2017 10:46
[2017-08-15] MEDS ORDERED: WALKER WHEELS/F1 MIS (11:07)
[2017-08-15] MEDS ORDERED: PERI PO (11:08)
[2017-08-15] MEDS ORDERED: OXYC1TAB63 PO (11:08)
[2017-08-15] MEDS ORDERED: POTASSIUM CHLORIDE 10 MEQ CONTROLLED RELEASE TAB PO ONE (11:30)
[2017-08-15] MEDS: levETIRAcetam 500 MG TAB PO SCH (11:37)
--- NOTE | 2017-08-15 11:40 | HHI.CCPN ---
Subjective Brief History 77-year-old female brought to [facility] ER for evaluation of fall. She was transferred here from [facility] for evaluation of a traumatic injury. Apparently she tripped over a sidewalk. Patient landed into her face. Patient was evaluated at [facility] and had imaging and lab work that was consistent with a right patellar fracture, left temporal subdural hematoma as well as subarachnoid hemorrhage as well as a blowout left orbital fracture with no entrapment. Patient also suffered a laceration to her left forehead. This was sutured at the [facility]. The neurosurgeon at [facility] refused to see her. She was transferred here after I accepted her to our trauma. Prior lumbar laminectomy. She denies taking any blood thinners. She denies losing consciousness. She denies any chest pain. No abdominal pain. No head pain. Patient has a splint to her right knee. She denies any back or neck pain at this time. She denies any other medical issues at this time. She does have a history of high blood pressure and diabetes. Final diagnosis Subarachnoid subdural hemorrhage with no neurologic deficit Left orbital blowout fracture Patellar fracture 24 Hour Review/Hospital Course Patient has been doing well since the arrival Neurologically she is fully intact awake alert and oriented Swelling around the left orbit has decreased Bilateral breath sounds Abdomen soft active bowel sounds Bilateral femoral-popliteal dissolves pedis posterior tibial pulses Patellar fracture with the swelling Neurosurgery OMF Orthopedic consults placed Repeat CT scan does not reveal any worsening of situation in the face of negative neurologic findings patient to be transferred to floor today 08/15/17 Patient is neurologically fully intact Swelling of the left face is decreased OMF consult is appreciated then according to the specialists patient will not need any surgery on her orbit Orthopedics has seen the patient for patellar fracture and patient will remain in the immobilizer From my point patient can be discharged and she will follow up with the orthopedics as an outpatient Objective Vital Signs Date Time Temp Pulse Resp B/P (MAP) Pulse Ox O2 Delivery O2 Flow Rate FiO2 08/15/17 08:00 98.8 67 21 139/62 (87) 94 08/14/17 07:04 Room Air Intake and Output 08/15/17 08/15/17 08/16/17 08:00 16:00 00:00 Intake Total 240 ml Output Total 375 ml Balance -135 ml Result Diagram: 08/15/17 0326 08/15/17 0326 Imaging Last [address] 08/14/17 1200 Signed Impressions: Service Date/Time: August 07:58 - CONCLUSION: No acute disease. Possible tiny vascular malformation along the vertex the right frontal lobe. Further evaluation with MRI should be considered if the patient has significant neurologic findings. Minimal fluid accumulation in the left maxillary sinus. Mega Finch MD Assessment and Plan Attestation Patient fully neurologically intact Critical care and is not charged because patient is in ICU as a border Rachna Briseno MD Aug 15, 2017 11:40
[2017-08-15 12:00] VITALS: BP 144/74; PULSE 63; RESP 22; TEMP 98.6; O2SAT 95
[2017-08-15] MEDS ORDERED: oxyCODONE/ACETAMINOPHEN 5 MG/325 MG TAB PO PRN (12:15)
--- NOTE | 2017-08-15 13:09 | HHI.NSPN ---
(Janice Medrano) Note Status Status: Progress Note (Janice Medrano) Interval History Interval History this is a 77-year-old female with history of high blood pressure and diabetes. mellitus, brought to [facility] for evaluation of fall. She was transferred here from [facility] for evaluation of a traumatic injury. She does have a history of high blood pressure and diabetes. Apparently she tripped over a sidewalk. Patient landed into her face. lNo oss of consciousness. No seizure activity reported. No tongue biting. No incontinence of stool or urine Patient was evaluated at [facility] and had imaging and lab work that was consistent with a right patellar fracture, left temporal subdural hematoma as well as subarachnoid hemorrhage as well as a blowout left orbital fracture with no entrapment. Patient also suffered a laceration to her left forehead. This was sutured at the [facility]. The neurosurgeon at [facility] refused to see her. She was transferred here after Dr. Petty from our trauma service agreed to have the transferred here. Patient complains that her pain currently is tolerable a 4 out of 10. She was given pain medication and tetanus booster at another facility. She denies any prior injuries. She denies taking any blood thinners. She denies losing consciousness. She denies any chest pain. No abdominal pain. No head pain. Patient has a splint to her right knee. She denies any back or neck pain at this time. She denies any other medical issues at this time. Neurosurgical consultation was requested 08/15: doing well, feeling better today, mild head pain but no focal weakness, no seizures. f/u CT Head completed (Janice Medrano) Labs, Micro, & Vital Signs Results Date Time Temp Pulse Resp B/P (MAP) Pulse Ox O2 Delivery O2 Flow Rate FiO2 08/15/17 08:00 98.8 67 21 139/62 (87) 94 08/15/17 04:00 98.3 58 21 125/63 (83) 95 08/15/17 00:00 97.6 58 12 130/63 (85) 96 08/14/17 20:00 99.1 60 12 129/67 (87) 96 08/14/17 16:00 98.5 67 16 117/56 (76) 95 Constitutional Vital Signs Date Time Temp Pulse Resp B/P (MAP) Pulse Ox O2 Delivery O2 Flow Rate FiO2 08/15/17 08:00 98.8 67 21 139/62 (87) 94 08/15/17 04:00 98.3 58 21 125/63 (83) 95 08/15/17 00:00 97.6 58 12 130/63 (85) 96 08/14/17 20:00 99.1 60 12 129/67 (87) 96 08/14/17 16:00 98.5 67 16 117/56 (76) 95 (Janice Medrano) Physical Exam Ms. Harvey is alert, awake and oriented to time, place and person. Conversing well. Speech is fluent. Cranial nerve examination: pupils equal, round, and reactive to light. Extra- ocular movements are intact. Facial motor are normal and symmetrical. Left supraorbital lac, s/p repair Neck is soft and supple. Muscle strength is 5/5 in all muscle groups of both upper and lower extremities. Sensory examination is intact to light touch in both the upper and lower extremities, symmetrically. Cerebellar examination is intact to [id number] test (Janice Medrano) Ms. Harvey is alert, awake and oriented to time, place and person. Conversing well. Speech is fluent. Cranial nerve examination: pupils equal, round, and reactive to light. Extra- ocular movements are intact. Facial motor are normal and symmetrical. Left supraorbital lac, s/p repair Neck is soft and supple. Muscle strength is 5/5 in all muscle groups of both upper and lower extremities. Sensory examination is intact to light touch in both the upper and lower extremities, symmetrically. Cerebellar examination is intact to [id number] test (Chaitanya Rossi MD) Medications Current Medications Current Medications Medications (Trade) Dose Ordered Sig/Trevin Route PRN Reason Start Time Stop Time Status Last Admin Dose Admin Sodium Chloride (NS Flush) 2 ml UNSCH PRN IV FLUSH FLUSH AFTER USING IV ACCESS 08/13/17 23:30 Sodium Chloride (NS Flush) 2 ml BID IV FLUSH 08/14/17 09:00 08/15/17 08:16 Ondansetron HCl (Zofran Inj) 4 mg Q6H PRN IV PUSH NAUSEA OR VOMITING 08/13/17 23:30 Famotidine (Pepcid) 20 mg BID PO 08/14/17 09:00 08/15/17 08:17 Naloxone HCl (Narcan Inj) 0.4 mg UNSCH PRN IV PUSH SEE LABEL COMMENTS 08/13/17 23:30 Amlodipine Besylate (Norvasc) 2.5 mg DAILY PO 08/14/17 09:00 08/15/17 08:17 Lisinopril (Prinivil) 20 mg DAILY PO 08/14/17 09:00 08/15/17 08:17 Hydrochlorothiazide (Microzide) 12.5 mg DAILY PO 08/14/17 09:00 08/15/17 08:17 Miscellaneous (Pill Splitter) 1 ea UNSCH PRN OTHER SEE LABEL COMMENTS 08/14/17 00:15 Dextrose (D50w (Vial) Inj) 50 ml UNSCH PRN IV PUSH HYPOGLYCEMIA-SEE COMMENTS 08/14/17 07:30 Glucagon (Glucagon Inj) 1 mg UNSCH PRN OTHER HYPOGLYCEMIA-SEE COMMENTS 08/14/17 07:30 Insulin Human Regular (NovoLIN R SUPPLEMENTAL SCALE) 1 ACHS SLIDING SCALE SQ 08/14/17 08:00 08/14/17 20:47 Senna/Docusate Sodium (Mae-Colace) 1 tab BID PO 08/14/17 09:00 08/15/17 08:17 Lactulose (Lactulose Liq) 30 ml DAILY PRN PO No BM in 2 days 08/14/17 07:30 Polyethylene Glycol (Miralax) 17 gm DAILY PO 08/14/17 09:00 08/15/17 08:16 Levetriacetam (Keppra) 500 mg Q12H PO 08/14/17 11:00 08/15/17 11:37 Oxycodone/ Acetaminophen (Percocet 5-325 Mg) 1 tab Q4HR PRN PO PAIN SCALE 3 TO 10 08/15/17 12:15 (Janice Medrano) Current Medications Current Medications Sodium Chloride 1,000 ml @ 60 mls/hr [id number] IV Last administered on t 00:49; Start 08/14/17 at 00:00; Stop 08/14/17 at 10:13; Status DC Sodium Chloride (NS Flush) 2 ml UNSCH PRN IV FLUSH FLUSH AFTER USING IV ACCESS ; Start 08/13/17 at 23:30; Stop 08/16/17 at 04:33; Status DC Sodium Chloride (NS Flush) 2 ml BID IV FLUSH Last administered on 08/15/17 08 :16; Start 08/14/17 at 09:00; Stop 08/16/17 at 04:33; Status DC Ondansetron HCl (Zofran Inj) 4 mg Q6H PRN IV PUSH NAUSEA OR VOMITING; Start at 23:30; Stop 08/16/17 at 04:33; Status DC Famotidine (Pepcid) 20 mg BID PO Last administered on 08/15/17 08:17; Start 08/14/17 at 09:00; Stop 08/16/17 at 04:33; Status DC Docusate Sodium (Colace) 100 mg BID PO ; Start 08/14/17 at 09:00; Stop at 09:00; Status DC Miscellaneous Information (Post-op Orders (for Pharmacy)) STAT ONCE XX ; Start 08/13/17 at 23:30; Stop 08/13/17 at 23:46; Status DC Oxycodone/ Acetaminophen (Percocet 5-325 Mg) 1 tab Q6H PRN PO PAIN SCALE 3 TO 5 Last administered on 08/15/17 08:17; Start 08/13/17 at 23:30; Stop at 12:03; Status DC Morphine Sulfate (Morphine Inj) 2 mg Q3H PRN IV PAIN 6-10 Last administered on 08/14/17 02:46; Start 08/13/17 at 23:45; Stop 08/15/17 at 12:03; Status DC Naloxone HCl (Narcan Inj) 0.4 mg UNSCH PRN IV PUSH SEE LABEL COMMENTS; Start 08/13/17 at 23:30; Stop 08/16/17 at 04:33; Status DC Amlodipine Besylate (Norvasc) 2.5 mg DAILY PO Last administered on 08/15/17 08:17; Start 08/14/17 at 09:00; Stop 08/16/17 at 04:33; Status DC Lisinopril (Prinivil) 20 mg DAILY PO Last administered on 08/15/17 08:17; Start 08/14/17 at 09:00; Stop 08/16/17 at 04:33; Status DC Hydrochlorothiazide (Microzide) 12.5 mg DAILY PO Last administered on 08:17; Start 08/14/17 at 09:00; Stop 08/16/17 at 04:33; Status DC Miscellaneous (Pill Splitter) 1 ea UNSCH PRN OTHER SEE LABEL COMMENTS; Start 08/14/17 at 00:15; Stop 08/16/17 at 04:33; Status DC Dextrose (D50w (Vial) Inj) 50 ml UNSCH PRN IV PUSH HYPOGLYCEMIA-SEE COMMENTS; Start 08/14/17 at 07:30; Stop 08/16/17 at 04:33; Status DC Glucagon (Glucagon Inj) 1 mg UNSCH PRN OTHER HYPOGLYCEMIA-SEE COMMENTS; Start 08/14/17 at 07:30; Stop 08/16/17 at 04:33; Status DC Insulin Human Regular (NovoLIN R SUPPLEMENTAL SCALE) 1 ACHS SLIDING SCALE SQ Last administered on 08/14/17 20:47; Start 08/14/17 at 08:00; Stop 08/16/17 at 04:33; Status DC Senna/Docusate Sodium (Mae-Colace) 1 tab BID PO Last administered on 08:17; Start 08/14/17 at 09:00; Stop 08/16/17 at 04:33; Status DC Lactulose (Lactulose Liq) 30 ml DAILY PRN PO No BM in 2 days; Start 08/14/17 at 07:30; Stop 08/16/17 at 04:33; Status DC Polyethylene Glycol (Miralax) 17 gm DAILY PO Last administered on 08/15/17 08 :16; Start 08/14/17 at 09:00; Stop 08/16/17 at 04:33; Status DC Levetriacetam (Keppra) 500 mg Q12H PO Last administered on 08/15/17 11:37; Start 08/14/17 at 11:00; Stop 08/16/17 at 04:33; Status DC Potassium Chloride (KCl) 30 meq ONCE ONCE PO Last administered on 08/15/17t 11:37; Start 08/15/17 at 11:30; Stop 08/15/17 at 11:31; Status DC Oxycodone/ Acetaminophen (Percocet 5-325 Mg) 1 tab Q4HR PRN PO PAIN SCALE 3 TO 10; Start 08/15/17 at 12:15; Stop 08/16/17 at 04:33; Status DC (Chaitanya Rossi MD) Medical Decision Making MDM Remarks 77 year old female ground level fall, acute subdural hematoma and transferred from [facility], nonfocal neuro exam, stable f/u CT Head (Janice Medrano) Plan Plan Remarks cont nonop mgt cont neuro checks nonchemical dvt prophylaxis in view of acute ICH protonix for stress ulcer prophylaxis ok OOB and transfer out of unit, ok to dc home from NRS standpoint (Janice Medrano) Attending Statement As above Continue nonoperative treatment of SAH The exam, history, and the medical decision-making described in the above note were completed with the assistance of the mid-level provider. I reviewed and agree with the findings presented. I attest that I had a [id number] encounter with the patient on the same day, and personally performed and documented my assessment and findings in the medical record. (Chaitanya Rossi MD) Janice Medrano Aug 15, 2017 13:09 Chaitanya Rossi MD Aug 17, 2017 19:03
--- NOTE | 2017-08-15 14:01 | HHI.FF ---
Face to Face Verification Diagnosis: (1) Patellar fracture Physical Therapy Gait training Knee: Knee fracture, Protocol: Right Canvas Knee Splint: At all times Right LE Weight Bearing: Partial WB 50%, No Strengthening, No Quad Sets Right LE Range of Motion: No ROM I have seen patient Aretha Harvey on 08/15/17. My clinical findings support the need for the requested home health care services because: Ltd mobility - disease progression I certify that my clinical findings support that this patient is homebound because: Post-op weakness Thuan Arrington/First Latoya KOLB Aug 15, 2017 14:01
--- NOTE | 2017-08-15 17:38 | HHI.DS ---
Discharge Summary Admission Date Aug 13, 2017 at 22:27 Discharge Date: Aug 15, 2017 Admitting Diagnosis acute subdural hematoma and SAH, patellar fracture, fall (1) Fall, initial encounter ICD Codes: W19.XXXA - Unspecified fall, initial encounter Diagnosis: Principal (2) Patellar fracture ICD Codes: S82.009A - Unspecified fracture of unspecified patella, initial encounter for closed fracture Status: Acute (3) Subdural hematoma, acute ICD Codes: I62.01 - Nontraumatic acute subdural hemorrhage Status: Acute (4) Blow out fracture of orbit ICD Codes: S02.30XA - Fracture of orbital floor, unspecified side, initial encounter for closed fracture Status: Acute (5) SAH (subarachnoid hemorrhage) ICD Codes: I60.9 - Nontraumatic subarachnoid hemorrhage, unspecified Status: Acute Brief History S/P Trauma: Fall CBC/BMP: 08/15/17 0326 08/15/17 0326 Significant Findings Laboratory Tests Test 08/14/17 04:27 08/15/17 03:26 White Blood Count 11.6 TH/MM3 (4.0-11.0) Neutrophils (%) (Auto) 83.6 % (16.0-70.0) Neutrophils # (Auto) 9.7 TH/MM3 (1.8-7.7) Blood Urea Nitrogen 31 MG/DL (7-18) 23 MG/DL (7-18) Creatinine 1.05 MG/DL (0.50-1.00) 1.01 MG/DL (0.50-1.00) Random Glucose 174 MG/DL (74-106) 116 MG/DL (74-106) Estimat Glomerular Filtration Rate 51 ML/MIN (>89) 53 ML/MIN (>89) Imaging Last Impressions Head CT 08/14/17 1200 Signed Impressions: Service Date/Time: August 07:58 - CONCLUSION: No acute disease. Possible tiny vascular malformation along the vertex the right frontal lobe. Further evaluation with MRI should be considered if the patient has significant neurologic findings. Minimal fluid accumulation in the left maxillary sinus. Mega Finch MD Knee X-Ray 08/14/17 0000 Signed Impressions: Service Date/Time: August 08:07 - CONCLUSION: 1. Comminuted fracture of the patella with extension to the articulating and non-articulating surfaces. Approximately 4 mm of distraction of the main fracture fragments. 2. Prepatellar soft tissue swelling with a large suprapatellar effusion. Atul Brown MD Carotid Artery Ultrasound 08/14/17 0000 Signed Impressions: Service Date/Time: August 18:30 - CONCLUSION: 1. Minimal plaque in the carotid arteries bilaterally. No hemodynamically significant stenosis. Skip Eason MD Chest X-Ray 08/13/17 0000 Signed Impressions: Service Date/Time: August 03:48 - CONCLUSION: The lungs are clear. Salinas Johnson MD PE at Discharge GENERAL: 77 year old well nourished female OOB in chair. SKIN: Warm and dry. LEFT eyebrow sutures intact and well approximated. HEAD: Normocephalic. EYES: Pupils equal and round. No scleral icterus. No injection or drainage. LEFT periorbital ecchymosis noted. ENT: No nasal bleeding or discharge. Mucous membranes pink and moist. NECK: Trachea midline. No JVD. CARDIOVASCULAR: Regular rate and rhythm. RESPIRATORY: No accessory muscle use. Clear to auscultation. Breath sounds equal bilaterally. GASTROINTESTINAL: Abdomen soft, non-tender, nondistended. MUSCULOSKELETAL: Extremities without clubbing, cyanosis, or edema. RIGHT knee brace in place. MAEW. + perfused NEUROLOGICAL: Awake and alert. Normal speech. Hospital Course [place]: Fell from the standing position striking her face on the sidewalk. No LOC. Transferred from [facility] for trauma services. INJURIES: LEFT forehead lac (sutures) LEFT temporal SDH SAH LEFT orbital blowout fx RIGHT patella fx Hospital Course Patient has been doing well since the arrival Neurologically she is fully intact awake alert and oriented Swelling around the left orbit has decreased Bilateral breath sounds Abdomen soft active bowel sounds Bilateral femoral-popliteal dissolves pedis posterior tibial pulses Patellar fracture with the swelling Neurosurgery OMF Orthopedic consults placed Repeat CT scan does not reveal any worsening of situation in the face of negative neurologic findings patient to be transferred to floor today 08/15/17 Patient is neurologically fully intact Swelling of the left face is decreased OMF consult is appreciated then according to the specialists patient will not need any surgery on her orbit Orthopedics has seen the patient for patellar fracture and patient will remain in the immobilizer From my point patient can be discharged and she will follow up with the orthopedics as an outpatient LEFT forehead lac Wound care: Cleanse daily with soap and water. LEave open to air Suture removal in 3-4 more days LEFT temporal SDH, SAH Neurosurgery consulted Supportive care 08/14: F/U CT Brain - no acute dx 08/14: US Carotids- minimal plaque No seizure activity Avoid second head injury Post concussive education LEFT orbital blowout fx OMFS consulted Nonoperative management Pain control F/U as outpatient RIGHT patella fx Orthopedics consulted Nonoperative management 50% WB RLE with knee brace on No leg lifts, quad sets, ROM, or strengthening Pain control F/U as outpatient HHC PT F/U with PCP in 1 week Plan of care discussed with patient, , RN at bedside. Patient is clear from Trauma surgery standpoint to safely discharge home with HHC. Pt Condition on Discharge: Stable Discharge Disposition: Disch w/ Home Health Serv Discharge Instructions DIET: Follow Instructions for: As Tolerated, No Restrictions Activities you can perform: See Additionl Instruction Activities to Avoid: Concussion Sports, Strenuous Activity Other Activity Instructions: 50% WB right leg with knee brace on. No leg lifts, quad sets, ROM, strengthening Aster Marinelli Aug 15, 2017 17:38
== END 2017-08-15 15:08 | disposition home health service (06) | DRG 86 ==
LOC: NEPC 22:09 → NEDA 22:27 → NEDH 08-14 02:29 → N03A 08-14 09:09
PROVIDERS: ADMIT Surgery; ATTEND Surgery
DX: S06.6X0A Traumatic subarachnoid hemorrhage without loss of consciousness, initial encounter (principal); S82.041A Displaced comminuted fracture of right patella, initial encounter for closed fracture; E11.9 Type 2 diabetes mellitus without complications; Z79.84 Long term (current) use of oral hypoglycemic drugs; S06.5X0A Traumatic subdural hemorrhage without loss of consciousness, initial encounter; S01.81XA Laceration without foreign body of other part of head, initial encounter; S02.32XA Fracture of orbital floor, left side, initial encounter for closed fracture; W18.49XA Other slipping, tripping and stumbling without falling, initial encounter; Y92.480 Sidewalk as the place of occurrence of the external cause; I10 Essential (primary) hypertension; Z79.82 Long term (current) use of aspirin
CPT/HCPCS: 70450; 71010; 73560; 80048; 82948; 85025; 86850; 86900; 86901; 93880; J2270; J7030; L1830